=== PATIENT | male | born 1985 | race Caucasian/White ===

== ENCOUNTER 2024-06-11 12:47 | Emergency (ER) | payer BC, SELFPAY ==
--- NOTE | 2024-06-11 15:54 | ED.GENMED ---
History of Present Illness
General
Chief Complaint: Musculo-Skeletal Complaint
Source: patient
Exam Limitations: none
Time Seen by Provider: 06/11/24 13:12
Nursing documentation reviewed up to this point in time: agreed with
History of Present Illness
History of Present Illness:
38-year-old male presenting to the emergency department today with concerns of right wrist discomfort after slipping on ice 1 week ago. Ongoing discomfort since. Denies numbness weakness or additional concerns no additional injuries.
Past History
Social History
Tobacco: Non-smoker
Personal: Single
Employment: Employed
Review of Systems
Review of Systems
Allergies reviewed?: Yes
All Other Systems: ROS reviewed and negative except as documented in HPI and ROS
Phy Exam
Physical Exam
Physical Exam:
GENERAL: Alert , in no apparent distress
EYE: pupils equal and reactive
NECK: Supple, no significant adenopathy.
ENT: o/p clr, mmm.
CARDIAC: Regular rate and rhythm .
LUNGS: Clear breath sounds bilaterally, no acute respiratory distress, no wheezes/rales/rhonchi
ABDOMEN: Soft, without focal tenderness, no r/g, no cvat
NEUROLOGICAL: Alert and oriented, no focal neuro deficits
SKIN: Warm and dry, skin intact.
MUSCULOSKELETAL:. No redness or warmth no swelling no edema, well perfused.
PSYCH: Normal and appropriate interaction.
No specific focal discomfort but some increased discomfort to the wrist with certain movements including flexion
Course
Orders/Labs/Results
Orders:
Orders
06/11/24 12:48
Wrist, Right 3 Views [CR Wrist - Right Min 3 Views] Urgent
Comment:
Reason For Exam: pain
06/11/24 15:53
Splints/Slings/Crut- Treatment ONCE
Location: Right
Comment: Velcro premade splint
Vital Signs
Initial and Last Documented VS:
Initial Vital Signs
Temp Pulse Resp Pulse Ox
97.6 F 105 20 100
06/11/24 13:06 06/11/24 13:06 06/11/24 13:06 06/11/24 13:06
Last Documented Vital Signs
Temp Pulse Resp Pulse Ox
97.6 F 105 20 100
06/11/24 13:06 06/11/24 13:06 06/11/24 13:06 06/11/24 13:06
MDM/Problems Addressed
MDM/Problems Addressed:
38-year-old male presenting to the emergency department today with concerns of ongoing right-sided wrist discomfort after falling onto his wrist 1 week ago. Here x-ray without signs of emergent pathology no redness or warmth or signs of infection.
Patient would likely sprain was advised for close orthopedic follow-up as needed. Return precautions given.
*Critical Care Note
Total Time (30-74mins, 75-104mins- exclusive of procedures): Not Applicable
ED Attending Note
-
Portions of this chart may have been created with voice recognition software.� Occasional wrong word or��sound alike� substitutions may have occurred due to the inherent limitations of voice recognition software.
Discharge Plan
Departure
Patient Disposition: Home (Routine Discharge)
Date of Disposition: 06/11/24
Time of Disposition: 15:54
Patient with high blood pressure during this ER visit?: No
Condition: Good
Covid-19: Not Applicable
Discharge Problem:
Sprain of right wrist
Instructions: Sprain (DC)
Referrals:
NONE,* [Family Provider] -
Saqib Umana MD [Active] - Follow up in 5-7 days
Activity Restrictions/Additional Instructions:
You came to the emergency department today for concerns of wrist discomfort. Your x-ray did not show any emergent findings. Please follow closely with the orthopedic doctor and rest ice and compress in the meantime. Return for any worsening, new
or concerning symptoms.
Interventions
Interventions:
*Risk Screen - Suicide Last Done: 06/11/24 13:06
*General Assessment Last Done: 06/11/24 13:06
*Neglect/Abuse Screening Last Done: 06/11/24 13:06
*ED COVID-19 Vaccine History Last Done: 06/11/24 13:14
ED-Musculoskeletal Assessment Last Done: 06/11/24 13:34
Discharge Date and Time
Print Language: IRISH
== END 2024-06-11 16:15 | disposition home or self-care (01) ==
LOC: EMR 12:47
PROVIDERS: EMERGENCY PHYSICIAN Emergency Medicine
DX: S63.501A Unspecified sprain of right wrist, initial encounter (principal); W00.0XXA Fall on same level due to ice and snow, initial encounter; F41.9 Anxiety disorder, unspecified; F32.A Depression, unspecified
CPT/HCPCS: 99283; 29125; 73110